=== PATIENT | female | born 1990 | race Caucasian/White ===

== ENCOUNTER 2016-11-16 14:35 | Emergency (ER) | payer MEDICAID ==
[~2016-11-16] VITALS: Ht 160 cm; Wt 84.0 kg
[2016-11-16 15:16] LABS: PATH.CAST-FLAG NOT PRESENT; SPERM-FLAG NOT PRESENT; SRC-FLAG NOT PRESENT; XTAL-FLAG NOT PRESENT; YLC-FLAG NOT PRESENT
[2016-11-16 15:21] LABS: HEMATOCRIT 38.3 % (34.6-47.8); HEMOGLOBIN 13.1 g/dL (11.7-16.4); WHITE BLOOD COUNT 7.6 x10^3/uL (3.4-10)
[2016-11-16 15:30] LABS: ASPARTATE AMINO TRANSFERASE 18 U/L (15-37); BLOOD UREA NITROGEN 16 mg/dL (7-18)
[2016-11-16] MEDS ORDERED: ONDANSETRON ODT 4 MG ONE (15:37)
[2016-11-16] MEDS ORDERED: ONDANSETRON ODT 4 MG PO ONE (16:00)
[2016-11-16 16:25] VITALS: BP 104/72
== END 2016-11-16 16:26 | disposition home or self-care (01) ==
LOC: ED 16:20
DX: K59.00 Constipation, unspecified (principal)
CPT/HCPCS: 36415; 74020; 80053; 81001; 84703; 85025; 87077; 87086; 99285; Q0162; 87186